=== PATIENT | male | born 1960 | race Two or more races ===

== ENCOUNTER 2020-08-13 08:14 | Outpatient (CLI) | payer MEDICARE ==
[2020-08-13 09:57] LABS: ALANINE AMINOTRANSFERASE 37 U/L (12-78); ALBUMIN 3.9 g/dL (3.4-5.0); ALKALINE PHOSPHATASE 67 U/L (46-116); ASPARTATE AMINOTRANSFERASE 25 U/L (15-37); BILIRUBIN,TOTAL 0.9 mg/dL (0.2-1.0); CALCIUM, SERUM 9.9 mg/dL (8.5-10.1); CARBON DIOXIDE 26 mmol/L (21-32); CHLORIDE 106 mmol/L (98-107); CREATININE 0.7 mg/dL (0.6-1.3); GLUCOSE 100 mg/dL (74-106); POTASSIUM 4.1 mmol/L (3.5-5.1); SODIUM SERUM 142 mmol/L (136-145); TOTAL PROTEIN, SERUM 7.8 g/dL (6.4-8.2); UREA NITROGEN, BLOOD 16 mg/dL (7-18)
[2020-08-13 10:07] LABS: THYROID STIMULATING HORMONE < 0.007 uIU/mL (0.358-3.74)
[2020-08-14 07:07] LABS: FOLLICLE STIMULATION HORMONE 2.4 mIU/mL (1.5-12.4); LUTEINIZING HORMONE 1.4 mIU/mL (1.7-8.6); PROLACTIN 13.4 ng/mL (4.0-15.2); T3, FREE 4.9 pg/mL (2.0-4.4)
[2020-08-14 12:07] LABS: ACTH, PLASMA 18.1 pg/mL (7.2-63.3)
[2020-08-15 05:08] LABS: INSULIN-LIKE GROWTH FACTOR 72 ng/mL (64-240)
== END 2020-08-13 23:59 | disposition home or self-care (01) ==
LOC: LAB 08:14
DX: D35.2 Benign neoplasm of pituitary gland (principal); E03.9 Hypothyroidism, unspecified
CPT/HCPCS: 36415; 80053-TC; 82024; 82533; 82670; 83001; 83002; 83003; 84146; 84305; 84402; 84403; 84439-TC; 84443-TC; 84481

== ENCOUNTER 2021-08-01 08:03 | Outpatient (CLI) | payer MEDICARE ==
[2021-08-01 09:40] LABS: BASOPHILS % (AUTO) 0.5 % (0.0-2.0); EOSINOPHILS % (AUTO) 4.2 % (0.0-6.0); HEMATOCRIT 41 % (39-51); HEMOGLOBIN 13.7 g/dL (13.5-17.5); LYMPHOCYTES % (AUTO) 48.2 % (20.0-44.0); MEAN CORPUSCULAR HGB CONC 33 g/dl (31.0-36.0); MEAN CORPUSCULAR VOLUME 85 fL (80-96); MONOCYTES # (AUTO) 0.5 K/uL (0.1-1.30); MONOCYTES % (AUTO) 7.5 % (2.0-12.0); NEUTROPHILS # (AUTO) 2.4 K/uL (1.8-8.9); NEUTROPHILS % (AUTO) 39.6 % (43.0-81.0); PLATELET COUNT (AUTO) 250 K/uL (150-450); RED BLOOD CELL COUNT(AUTO) 4.86 MIL/uL (4.5-6.0); WHITE BLOOD COUNT (AUTO) 6.1 K/uL (4.3-11.0)
[2021-08-01 10:26] LABS: THYROID STIMULATING HORMONE 0.015 uIU/mL (0.358-3.74)
[2021-08-01 10:43] LABS: BILIRUBIN,URINE NEGATIVE (NEGATIVE); COLOR,URINE YELLOW (YELLOW); LEUKOCYTE ESTERASE ,URINE NEGATIVE (NEGATIVE); NITRITE, URINE NEGATIVE (NEGATIVE); PH,URINE 5.5 (5.0-8.0); PROTEIN,URINE NEGATIVE (NEGATIVE); UGLUCOSE NEGATIVE (NEGATIVE); UROBILINOGEN,URINE 0.2 EU/dL (0.2)
[2021-08-01 10:49] LABS: CALCIUM, SERUM 9.2 mg/dL (8.5-10.1); POTASSIUM 3.8 mmol/L (3.5-5.1)
[2021-08-01 11:40] LABS: ALBUMIN 4.3 g/dL (3.4-5.0); BILIRUBIN,TOTAL 0.6 mg/dL (0.2-1.0); TOTAL PROTEIN, SERUM 8.1 g/dL (6.4-8.2)
[2021-08-02 08:06] LABS: FOLLICLE STIMULATION HORMONE 2.7 mIU/mL (1.5-12.4); PROLACTIN 15.4 ng/mL (4.0-15.2); T3, FREE 3.8 pg/mL (2.0-4.4)
[2021-08-02 13:07] LABS: ACTH, PLASMA 19.8 pg/mL (7.2-63.3)
== END 2021-08-01 23:59 | disposition home or self-care (01) ==
LOC: LAB 08:03
DX: I10 Essential (primary) hypertension (principal); D35.2 Benign neoplasm of pituitary gland; E21.3 Hyperparathyroidism, unspecified; E78.2 Mixed hyperlipidemia; R73.01 Impaired fasting glucose
CPT/HCPCS: 36415; 80053-TC; 80061-TC; 82024; 82533; 83001; 84146; 84402; 84403; 84439-TC; 84443-TC; 84481; 85025-TC